=== PATIENT | male | born 1960 | race Caucasian/White ===

== ENCOUNTER 2016-12-14 09:22 | Inpatient (IN) ==
[2016-12-14] MEDS ORDERED: Albuterol 2.5 MG/3 ML NEBULIZER IH ONE (09:48)
[2016-12-14] MEDS ORDERED: ceFAZolin 2,000 MG in D5% in Water (Mini-Bag+) 100 ML IVPB ONE (09:50)
[2016-12-14] MEDS ORDERED: Ringers Solution, Lactated 1,000 ML IVC SCH ×2 (10:00→16:45)
--- NOTE | 2016-12-14 10:08 | Anesthesia Evaluation PreOp ---
Date of Encounter: 12/14/16 Time of Encounter: 10:08 - Past History Planned Operation: ACDF C3-6 Cardiac History: HTN, Hyperlipidemia Pulmonary History: Smoker (1 ppd x 40+), COPD OFFICE EXECUTIVE History: Seizures (as chil), Other (Cervical myelopathy, Anxiety/Depression , poss MRDD) Other Medical History: GERD Anesthesia History: No Prior Anesthetic Complications, Past Anesthesia (Appy, T& A,R. shoulder, Left ear,) Alcohol Use: none Drug use: none Medications and Allergies Meclizine [Antivert] 25 mg PO TID #30 tablet 08/18/15 [Rx] Cephalexin [Keflex] 500 mg PO QID #28 capsule 12/24/15 [Rx] Ibuprofen [Motrin] 600 mg PO Q8HR PRN #60 tab 03/07/16 [Rx] Allergies ciprofloxacin [From Cipro] Allergy (Verified 08/18/15 17:02) Itching - Meds/Allergy Pre-op Review Medications Reviewed: Yes Allergies Reviewed: Yes Beta Blockers on Current Med List: No Anesthesia Results - Labs Laboratory Tests 12/10/16 12/10/16 12/10/16 09:53 09:53 09:53 WBC 9.5 Hgb 16.5 Hct 50.3 H Plt Count 239 INR 1.0 Sodium 138 Potassium 4.8 H Chloride 104 Carbon Dioxide 22 BUN 14 Creatinine 1.08 - Imaging EKG: image reviewed (SR IVCD) Anesthesia Exam O2 Sat Height 1.7 m Height 1.7 m Weight 75.296 kg Weight 75.296 kg O2 Sat by Pulse Oximetry 95 Vital Signs Temp Pulse Resp BP Pulse Ox 98.6 F 80 18 154/86 95 12/14/16 09:58 12/14/16 09:58 12/14/16 09:58 12/14/16 09:58 12/14/16 09:58 Height: 5'7'' Weight: 166# NPO (# of Hours): > 8hrs Pain Scale: 0 Pain Scale Used: Numeric (1 - 10) - HEENT Pupil (Motor): Pupils equal, EOMI Mallampati: II Teeth: Edentulous Oral Opening: Greater than 3 - OFFICE EXECUTIVE LOC: Oriented OFFICE EXECUTIVE Motor: Normal RUE, Normal LUE, Normal RLE, Normal LLE, Normal Face OFFICE EXECUTIVE Sensory: Normal: RUE, LUE, RLE, LLE, Face - Cardiac Rhythm: Regular Murmur: None JVD: No Carotid Bruit: No - Pulmonary Breath Sounds: bilateral Clear Respiratory Effort: Symmetrical Anesthesia Assess/Plan ASA Score: 3 Modified Eva Scale for Level of Consciousness: Cooperative, oriented, and tranquil Anesthetic Plan: General Autologous Blood: Yes Monitoring Plan: Standard Monitors Recovery Plan: PACU
--- NOTE | 2016-12-14 10:19 | History & Physical Report ---
Date of Encounter: 12/14/16 Time of Encounter: 10:19 24 Hour HP Update - Instructions Instructions: If the History and Physical is less than 30 days old and was completed prior to A.M. admission and or procedure and has NOT been updated on calendar day of procedure please complete this update prior to performing procedure. - Update Patient reports changes in Medical Condition: No Changes in assessment/condition: No Changes in Medication: No Preop tests/diagnostics Reviewed: Yes Pre-Op MRSA Screen: Negative Surgery Remains Indicated: Yes Consent for Planned Operative Procedure(s) Verified: Yes - Pre-Operative Checklist Preoperative Checklist Indicated: No Prophylactic Antibiotic Ordered: Yes Home Medications Include Beta Milton: No Beta Milton Taken Today (Day of Surgery): No Beta Milton Taken Yesterday (Day Prior to Surgery): No Is VTE Prophylaxis Indicated?: Yes
[2016-12-14] MEDS ORDERED: *HR* Remifentanil 1 MG VIAL IVP ONE ×2 (11:29→13:14)
[2016-12-14] MEDS ORDERED: Lidocaine -MPF 2% 2 ML VIAL ONE (11:29)
[2016-12-14] MEDS ORDERED: Ondansetron 4 MG/2 ML VIAL ONE (11:29)
[2016-12-14] MEDS ORDERED: Dexamethasone 4 MG/ML VIAL ONE (11:29)
[2016-12-14] MEDS ORDERED: Lidocaine -MPF 4% 5 ML AMPUL ONE (11:29)
[2016-12-14] MEDS ORDERED: *HR* FentaNYL (PF) 100 MCG/2 ML VIAL ONE (11:29)
[2016-12-14] MEDS ORDERED: Propofol 500 MG/50 ML INFUS..BTL ONE ×3 (11:29→12:58)
[2016-12-14] MEDS ORDERED: *HR* Midazolam HCl 2 MG/2 ML VIAL ONE (11:29)
[2016-12-14] MEDS ORDERED: *HR* Succinylcholine 200 MG/10 ML VIAL IVP ONE (11:29)
[2016-12-14] MEDS ORDERED: *HR* Propofol 200 MG/20 ML VIAL IVP ONE ×2 (11:29→13:29)
[2016-12-14] MEDS ORDERED: *HR* Promethazine 25 MG/ML VIAL IVP PRN (11:46)
[2016-12-14] MEDS ORDERED: *HR* HYDROmorphone 2 MG/ML SYRINGE ONE (13:47)
--- NOTE | 2016-12-14 13:52 | Orthopedic Operative Note ---
Date of procedure: 12/14/16 Pre-op diagnosis: Cervical stenosis, cervical myelopathy Post-op diagnosis: same Operation/Findings: Anterior cervical decompression and fusion C3-C6::The patient was brought to the operating room and placed supine on the operating room table. Successful general endotracheal anesthesia intubation was performed. Neurophysiologic monitoring personnel placed leads on the upper and lower extremities as well as the cranium for EMG monitoring purposes. Appropriate baseline potentials were noted by the neurophysiologic monitoring staff. Rodriguez catheter was placed prior to positioning. Compression boots and stockings were placed for deep vein thrombosis prophylaxis. Padding was also placed all bony prominences including the ulnar nerve near the medial epicondyles of the elbows were appropriately padded. Mild traction was placed on the bilateral shoulders and taped into place. Preoperative antibiotics were administered. The area from the mandible bilaterally to the upper thoraces was prepped and draped in the usual sterile fashion. An oblique incision was made at the level of the cricoid cartilage which is approximately 3 cm in length and extended from the midline of the cervical spine 1 cm medial and parallel to the sternocleidomastoid muscle on the left. We then performed standard medial approach to the carotid sheath. Sponges were used to tease the fascial medial to the sternocleidomastoid muscle while carefully controlling and palpating the carotid artery. Using careful dissection we were able to get to the level of the anterior vertebral bodies and longus colli muscles. The spinal needle was placed at the appropriate C5-6 level, and intraoperative radiograph was obtained which was a cervical spine lateral radiograph. The needle and radiograph confirmed we were at the correct C5-6 operative level. We further exposed this level by using Bovie cautery under the medial edge of the longus colli muscles to allow them to be retracted approximately 2 mm laterally on each side. An 11 blade was used to perform anterior discectomy at the appropriate C5-6 level after an initial annulotomy of the anterior longitudinal ligament and annulus was performed. Further disc material was removed with pituitary Rongeurs. Subsequently, Synthes pins were placed at the C5 and C6 vertebral bodies respectively to provide distraction. We then used a Trimline cervical retractor which was placed in both medial and lateral as well as inferior superior direction to allow full visualization of the appropriate C5-6 disc and 5 and C6 vertebral bodies. The Leica microscope was brought to the field and the remainder of the procedure was performed under the guidance of this microscope. Using pituitary rongeurs and small curettes, various micro- instruments, a full discectomy was performed at the appropriate C5-6 level. The posterior longitudinal ligament was encountered and appeared partially calcified. A portion of this ligament was removed. After complete and thorough discectomy and removal of spondylitic material was performed the endplates of the T5 and C6 vertebral bodies were prepared with a bur until allow bleeding of cancellous bone. A 8mm trial graft was evaluated and appeared to fit quite well within the excised C5-6 disc space. A cortico- cancellous allograft of 8 mm was utilized, carefully tapped into place within the excised disc space with the aid of a bone tamp. It was seated approximately 2 mm from the anterior edge of the cortex of the adjacent vertebral bodies. We then turned our attention to the C4-5 level where a similar series of procedures was performed including discectomy, removal of spondylitic material, end plate preparation, and trial grafting. An 8mm trial fit well within the C4-5 disc space. A 8 mm allograft was then placed at C5-6. We then turned our attention to the C3-4 level where a similar series of procedures were performed. This included decompression, removal of spondylitic material, endplate preparation, and trial grafting. A 7 mm trial fit well within the decompressed C3-4 disc space. A 7 mm allograft was subsequently placed at C3-4 carefully. A 60 mm cervical plate was then placed on the anterior aspect of the C3, C4, C5, and C6 vertebral bodies. The plate was placed in the midline position after drilling eight 13 mm self tapping screws and inserting them. They were locked in place using standard Venture plate maneuvers. At this point a lateral radiograph of the cervical spine was obtained and showed satisfactory position of the graft and plate. The wound was copiously irrigated and bleeders encountered were cauterized using Bovie cautery. Platysma was closed with interrupted 2-0 Vicryl sutures. Running 3-0 Monocryl suture was used for skin closure. Sterile dressing was placed over the neck wound. A cervical collar was placed. The patient was transferred to a hospital bed and extubated. The patient was noted to be fully motor and sensory intact in the recovery room at the end of the procedure. The medications. All sponge instrument and needle counts were correct at the end of the procedure. Anesthesia: ERIKA Surgeon: Eran Wright Jr Estimated blood loss (cc): 60 Condition: stable Disposition: PACU
[2016-12-14] MEDS: *HR* HYDROmorphone (PF) 1 MG/ML SYRINGE IVP PRN ×2 (14:18→14:23)
[2016-12-14] MEDS: *HR* Labetalol 20 MG/4 ML SYRINGE IVP PRN ×2 (15:00→15:10)
--- NOTE | 2016-12-14 15:24 | Anesthesia Evaluation Post Op ---
Date of Encounter: 12/14/16 Time of Encounter: 15:24 - Vital Signs Vital Signs: Last Vital Signs Temp 98.5 F 12/14/16 14:02 Pulse 82 12/14/16 14:12 Resp 16 12/14/16 14:12 BP 153/90 12/14/16 14:12 Pulse Ox 98 12/14/16 14:12 - Lungs Lungs: Clear Ascult./Percussion - Airway Airway: Non-obstructed - Cardiovascular Regular Rate - Mental Status Mental Status: Alert & Oriented, Answers Appropriately - Pain Pain Scale: 4 - Nausea Vomiting Nausea Vomiting: Not Present - Hydration Hydration: NPO - Discharge PostOp Status: Transfer Patient to floor
[2016-12-14] MEDS ORDERED: Sennosides 8.6 MG TABLET PO PRN (15:48)
[2016-12-14] MEDS ORDERED: *HR* Morphine 2 MG/ML SYRINGE IVP PRN ×2 (15:48)
[2016-12-14] MEDS ORDERED: Naloxone 0.4 MG/ML INJ IVP PRN (15:48)
[2016-12-14] MEDS ORDERED: Ondansetron 4 MG/2 ML VIAL IVP PRN (15:48)
[2016-12-14] MEDS ORDERED: Ringers Solution, Lactated 1,000 ML ONE (15:56)
[2016-12-14] MEDS: *HR* OxyCODONE Immed Rel 5 MG TABLET PO PRN (19:48)
[2016-12-14] MEDS: ceFAZolin 2,000 MG in D5% in Water 100 ML IVPB SCH (19:57)
[2016-12-14] MEDS ORDERED: Sennosides 8.6 MG TABLET PO SCH (21:00)
[2016-12-14] MEDS ORDERED: Loratadine 10 MG TABLET PO SCH (21:00)
[2016-12-14] MEDS ORDERED: Aspirin Enteric Coated 81 MG Tablet PO SCH (21:00)
[2016-12-14] MEDS: Famotidine 20 MG TABLET PO SCH (22:04)
[2016-12-15] MEDS: ceFAZolin 2,000 MG in D5% in Water 100 ML IVPB SCH (00:07)
[2016-12-15] MEDS ORDERED: Venlafaxine XR (24 HR) 75 MG CAP.ER.24H PO SCH (09:00)
[2016-12-15] MEDS: *HR* OxyCODONE Immed Rel 5 MG TABLET PO PRN (09:22)
[2016-12-15] MEDS: Famotidine 20 MG TABLET PO SCH (09:22)
--- NOTE | 2016-12-15 09:47 | Discharge Summary ---
Date of Encounter: 12/15/16 Time of Encounter: 09:45 - Discharge Diagnosis (1) Cervical stenosis of spinal canal Priority: Primary Status: Chronic (2) Cervical myelopathy Priority: Secondary Status: Chronic - Discharge Medications Prescriptions: OxyCODONE Immed Rel [Roxicodone 5 MG] 5 mg PO Q6HR PRN #60 tablet PRN Reason: Severe Pain Home Medications: Amitriptyline HCl 300 mg PO HS 12/14/16 [History] Aspirin Enteric Coated [Aspirin EC] 81 mg PO HS 12/14/16 [History] Buspirone HCl [Buspar] 15 mg PO BID 12/14/16 [History] Citalopram [CeleXA] 20 mg PO HS 12/14/16 [History] Cyclobenzaprine [Flexeril] 10 mg PO HS 12/14/16 [History] HYDROcodone/Acet 10/325 mg [Friendly 10-325 mg] 1 tab PO Q6HR PRN 12/14/16 [History ] Loratadine [Allergy Relief] 10 mg PO HS 12/14/16 [History] Montelukast [Singulair] 10 mg PO QAM 12/14/16 [History] Polyethylene Glycol 3350 [MiraLAX Powder Bulk 17.9 Oz] 1 scoop PO DAILY PRN [History] Ranitidine HCl [Zantac] 150 mg PO BID 12/14/16 [History] Sennosides [Senna] 8.6 mg PO HS 12/14/16 [History] Simvastatin [Zocor] 40 mg PO QAM 12/14/16 [History] Venlafaxine XR (24 HR) [Effexor XR] 75 mg PO QAM 12/14/16 [History] Venlafaxine XR (24 HR) [Effexor Xr] 150 mg PO HS 12/14/16 [History] OxyCODONE Immed Rel [Roxicodone 5 MG] 5 mg PO Q6HR PRN #60 tablet 12/15/16 [Rx] Allergies/Adverse Reactions: Allergies ciprofloxacin [From Cipro] Allergy (Verified 12/14/16 10:26) Itching - Impressions ITS Impressions Cervical Spine X-Ray 12/14/16 11:39 IMPRESSION: Surgical instrument anterior to the C5-C6 disc space. Findings were discussed with Dr. Wright on 12/14/2016 at 11:43 am. D/ / Yunior Mansfield MD / Yunior Mansfield MD Interpreting Provider: Yunior Mansfield MD Cervical Spine X-Ray 12/14/16 11:41 IMPRESSION: Postoperative changes seen related to anterior cervical disc fusion and discectomy at C3 through C6 with disc interspace devices noted. No acute fracture. D/ / Oseas Ochoa MD / Oseas Ochoa MD Interpreting Provider: Oseas Ochoa MD Date of admission: 12/14/16 15:35 Primary care physician: Ruiz Decker Consults: 12/14/16 15:48 Consult to Occupational Therapy [CONS] Routine Comment: Evaluate, develop and implement POC Consult to Physical Therapy [CONS] Routine Comment: Evaluate, develop and implement POC Consult to Spine Navigator [CONS] [CONS] Routine - Patient Status Disposition: Home, Self-Care Condition: Good Functional capacity at discharge: independent ambulation Overall status at discharge: patient is progressing back to baseline - Discharge Instructions Follow Up With: Edyta Benites PAC [Physician Loom Repairer] - 12/31/16 11:15 am Ruiz Decker DO [Primary Care Provider] - - Diet and Activity Activity: as per physical therapy Diet: advance to your usual diet - Hospital Course Hospital course: Mr. Marx is a 56 year old male The patient had an uneventful postoperative course. Progressed from intravenous analgesic needs to oral analgesic needs only. Remained neurovascularly intact and mobilized satisfactorily. All intraoperative and/or postoperative radiographic studies were satisfactory. Patient is discharged with plan for rehabilitation and follow-up in 2 weeks post discharge on analgesic medication and patient's home medications. - Time Spent with Patient Total time spent providing and/or coordinating discharge services: - VTE Documentation of Mechanical Device: Intermittent pneumatic compression device
[2016-12-15 11:11] VITALS: BP 146/83
== END 2016-12-15 11:37 | disposition home or self-care (01) | DRG 321 ==
LOC: SAMDAY 09:22 → 3NENU 15:35
PROVIDERS: ADMIT Orthopaedic Surgery Orthopaedic Surgery of the Spine; ATTEND Orthopaedic Surgery Orthopaedic Surgery of the Spine

== ENCOUNTER 2017-10-19 15:07 | Observation (INO) ==
[2017-10-19 16:38] LABS: Basophils # 0.1 K/mcL (0.0-0.2); Basophils % 1.1 %; Eosinophils # 0.1 K/mcL (0.0-0.6); Eosinophils % 1.3 %; Hematocrit 50.6 % (37.5-50.1); Hemoglobin 16.4 g/dL (12.9-16.9); Immature Granulocytes % 0.3 % (0-4); Lymphocytes # 2.8 K/mcL (0.6-4.6); Lymphocytes % 25.4 %; Mean Corpuscular HGB Conc 32.4 g/dL (31.6-35.5); Mean Corpuscular Hemoglobin 30.2 pg (28.0-33.3); Mean Corpuscular Volume 93.2 fL (83.0-100.0); Mean Platelet Volume 9.9 fL (9.4-12.4); Monocytes # 0.9 K/mcL (0.0-1.3); Neutrophils # 6.9 K/mcL (1.6-8.9); Platelet Count 238 K/mcL (140-400); Red Blood Count 5.43 M/mcL (4.19-5.50); Red Cell Distribution Width 13.4 % (11.5-14.5); Segmented Neutrophils % 63.9 %
[2017-10-19 17:01] LABS: Calcium 9.6 mg/dL (8.6-10.3); Carbon Dioxide 23 mEq/L (23-29); Chloride 105 mEq/L (98-107); Potassium 4.3 mEq/L (3.5-5.1); Sodium 137 mEq/L (136-145)
[2017-10-19 17:07] LABS: BUN/Creatinine Ratio 14 (6-26); Blood Urea Nitrogen 14 mg/dL (6-20); Glucose 84 mg/dL (70-105); Osmolality,Calculated 284 (280-300); eGFR For African Americans > 60 (> 60); eGFR For Non-African Americans > 60 (> 60)
[2017-10-19] MEDS ORDERED: Aspirin 81 MG TAB.CHEW PO STA (17:38)
--- NOTE | 2017-10-19 17:41 | Emergency Department Note ---
Disposition Clinical Impression: Chest pain Qualifiers: Chest pain type: unspecified Qualified Code(s): R07.9 - Chest pain, unspecified Disposition: Admitted As Inpatient Condition: Fair Chest Pain HPI - General Chief Complaint: ED Chest Pain Stated Complaint: ALON,CP,Shoulder pain Time Seen by Provider: 10/19/17 16:33 Source: patient Limitations: no limitations Vital Signs Reviewed: Yes Nursing Notes Reviewed: Yes - History of Present Illness HPI Narrative: Patient presents for evaluation chest pain. Past medical history concerning for vascular disease including history of "mini strokes" as well as vascular stent placed in the lower leg. The patient also has a history of hypercholesterolemia, smoking. The patient developed symptoms at 1:00. Patient states that he had left-sided chest tightness with radiation to the shoulder. Associated diaphoresis weakness and fatigue. Patient laid down to rest but continued to have symptoms despite rest. Patient presents to the emergency department with his . Patient not in acute distress. Rating pain as a 7 out of 10. It was a 9 out of 10 at its worse. Patient will receive aspirin and nitroglycerin. EKG does not show ST elevations. Patient will be admitted for further testing and observation. Severity scale (1-10): 6 - Related Data Home Medications Medication Instructions Recorded Confirmed Amitriptyline HCl 250 mg PO HS 12/14/16 10/19/17 Aspirin Enteric Coated [Aspirin EC] 81 mg PO QAM 12/14/16 10/19/17 Buspirone HCl [Buspar] 15 mg PO BID 12/14/16 10/19/17 Citalopram [CeleXA] 20 mg PO HS 12/14/16 10/19/17 Cyclobenzaprine [Flexeril] 10 mg PO HS 12/14/16 10/19/17 HYDROcodone/Acet 10/325 mg [[place] 1 tab PO Q6HR PRN 12/14/16 10/19/17 10-325 mg] Loratadine [Allergy Relief] 10 mg PO HS 12/14/16 10/19/17 Montelukast [Singulair] 10 mg PO QAM 12/14/16 10/19/17 Ranitidine HCl [Zantac] 150 mg PO BID 12/14/16 10/19/17 Sennosides [Senna] 17.2 mg PO HS PRN 12/14/16 10/19/17 Simvastatin [Zocor] 40 mg PO QAM 12/14/16 10/19/17 Venlafaxine XR (24 HR) [Effexor XR] 75 mg PO QAM 12/14/16 10/19/17 Venlafaxine XR (24 HR) [Effexor Xr] 150 mg PO HS 12/14/16 10/19/17 Allergies Allergy/AdvReac Type Severity Reaction Status Date / Time ciprofloxacin [From Cipro] Allergy Itching Verified 10/19/17 15:11 Review of Systems: CONSTITUTIONAL: Diaphoresis and weakness No weight loss, fever, chills HEENT: Eyes: No visual changes. Ears, Nose, Throat: No hearing loss, difficulty talking or unable to swallow. SKIN: No rash or itching. CARDIOVASCULAR: Chest pain RESPIRATORY: Shortness of breath GASTROINTESTINAL: No anorexia, nausea, vomiting or diarrhea. No abdominal pain or blood. GENITOURINARY: No burning on urination or hematuria. NEUROLOGICAL: No headache, dizziness, syncope, paralysis, ataxia, numbness or tingling in the extremities. No change in bowel or bladder control. MUSCULOSKELETAL: No muscle pain, back pain, joint pain or stiffness. Chest Pain PMH - Past Medical History Medical history: Reports: COPD, GERD, hyperlipidemia, hypertension, TIA Surgical history: Reports: angioplasty/stent, appendectomy, cholecystectomy Psychiatric history: Reports: anxiety, depression - Social History Smoking Status: Current every day smoker Alcohol use: Reports: none Drug use: Reports: none Physical Exam General: Well appearing, nontoxic, no acute distress Head: Normocephalic Atraumatic Eyes: PERRL, EOMI ENT: Airway patent, no stridor Neck: supple, no meningismus Chest: Lungs clear to auscultation bilateral Cardiac: Regular rate and rhythm, no murmurs, rubs or gallops Abdomen: soft, nontender, nondistended; no guarding, rebound, or tenderness to percussion Musculoskeletal: Calves symmetric, nontender, no palpable cord Skin: No rash, normal skin tone Neuro: Alert and Oriented to person, place, and time; No focal deficit, CN 2-12 symmetric and intact - General Limitations: no limitations General appearance: alert, in no apparent distress Course - Reevaluation(s) Reevaluation #1: Patient improved with nitroglycerin. - Consultations Consultation #1: Discussed with hospitalist. Patient accepted for admission. Vital Signs Temperature 98.0 F 10/19/17 15:08 Pulse Rate 97 10/19/17 15:08 Respiratory Rate 18 10/19/17 15:08 Blood Pressure 156/102 10/19/17 15:08 O2 Sat by Pulse Oximetry 95 10/19/17 15:08 Temperature 97.7 F 10/19/17 21:45 Pulse Rate 84 10/19/17 21:45 Respiratory Rate 16 10/19/17 21:45 Blood Pressure 127/82 10/19/17 21:45 O2 Sat by Pulse Oximetry 95 10/19/17 21:45 Oxygen Delivery Oxygen Delivery Room Air Chest Pain - Medical Records Medical records reviewed: Yes I reviewed the patient's medical records. - Lab Data Lab results reviewed: Yes I reviewed the patient's lab results. Result diagrams: 10/19/17 16:21 10/19/17 16:21 Lab Results 10/19/17 10/19/17 10/19/17 Range/Units 16:21 16:21 16:21 WBC 10.8 (4.3-11.1) K/mcL RBC 5.43 (4.19-5.50) M/mcL Hgb 16.4 (12.9-16.9) g/dL Hct 50.6 H (37.5-50.1) % MCV 93.2 (83.0-100.0) fL MCH 30.2 (28.0-33.3) pg MCHC 32.4 (31.6-35.5) g/dL RDW 13.4 (11.5-14.5) % Plt Count 238 (140-400) K/mcL MPV 9.9 (9.4-12.4) fL Immature Gran % 0.3 (0-4) % Seg Neutrophils % 63.9 % Lymphocytes % 25.4 % Monocytes % 8.0 % Eosinophils % 1.3 % Basophils % 1.1 % Neutrophils # 6.9 (1.6-8.9) K/mcL Lymphocytes # 2.8 (0.6-4.6) K/mcL Monocytes # 0.9 (0.0-1.3) K/mcL Eosinophils # 0.1 (0.0-0.6) K/mcL Basophils # 0.1 (0.0-0.2) K/mcL Sodium 137 (136-145) mEq/L Potassium 4.3 (3.5-5.1) mEq/L Chloride 105 (98-107) mEq/L Carbon Dioxide 23 (23-29) mEq/L BUN 14 (6-20) mg/dL Creatinine 1.03 (0.70-1.30) mg/dL Est GFR ( Amer) > 60 (> 60) Est GFR (Non-Af Amer) > 60 (> 60) BUN/Creatinine Ratio 14 (6-26) Glucose 84 (70-105) mg/dL Calculated Osmolality 284 (280-300) Calcium 9.6 (8.6-10.3) mg/dL Troponin I < 0.03 (< 0.04) ng/mL - Radiology Data Radiology results reviewed: Yes I reviewed the patient's radiology results. - EKG Data EKG attestation: Yes I reviewed and interpreted this EKG. EKG results narrative: EKG shows sinus rhythm with a ventricular rate of 91. OH interval 195. QRS 79. QTC 372. Patient has no significant ST elevations or depressions. EKG compared with previous of 12/10/16. Heart Score - Score History: Highly Suspicious EKG: Non Specific repolarisation Disturbance Age: 45-65 Risk Factors: Equal/Greater than 3 risk factor or history of atherosclerotic disease Troponin: Less than normal limit HEART Score Total: 6
[2017-10-19] MEDS ORDERED: Nitroglycerin 1 INCH/GM PACKET TP ONE (17:50)
--- NOTE | 2017-10-19 17:50 | Emergency Department Note ---
START Narrative - START START: I examined this patient and my medical decision-making was reviewed with the Resident Physician. I agree with the documented findings, disposition and treatment plan as described except to the extent set forth below. 57 yo M here for chest pain. needs ACS workup intermittent chest pain that radiates up to left shoulder. hx of vascular disease and stent in leg. risk factors ekg nondiagnostic vss neg labs neg cxr
[2017-10-19] MEDS: Nitroglycerin 0.4 MG TAB.SUBL SL STA ×2 (17:51→18:01)
[2017-10-19] MEDS ORDERED: Ondansetron 4 MG/2 ML VIAL IVP ONE (18:46)
[2017-10-19] MEDS: *HR* Morphine 2 MG/ML SYRINGE IVP ONE ×2 (19:11→19:15)
[2017-10-19] MEDS ORDERED: 0.9 % Sodium Chloride 1,000 ML ONE (19:16)
[2017-10-19] MEDS ORDERED: 0.9 % Sodium Chloride 1,000 ML IVC ONE (19:17)
[2017-10-19] MEDS ORDERED: Acetaminophen 325 MG TABLET PO PRN (20:24)
[2017-10-19] MEDS ORDERED: Nitroglycerin 0.4 MG TAB.SUBL SL PRN (20:24)
[2017-10-19] MEDS ORDERED: *HR* HYDROmorphone (PF) 1 MG/ML SYRINGE IVP PRN ×2 (20:25→20:26)
[2017-10-19] MEDS ORDERED: Naloxone 0.4 MG/ML INJ IVP PRN (20:26)
[2017-10-19] MEDS ORDERED: Ondansetron 4 MG/2 ML VIAL IVP PRN (20:26)
[2017-10-19] MEDS ORDERED: 0.9 % Sodium Chloride 1,000 ML IVC SCH (20:30)
--- NOTE | 2017-10-19 20:37 | Internal Med History&Physical ---
Date of Encounter: 10/19/17 Time of Encounter: 20:35 Assessment and Plan (1) Chest pain Current visit: Yes Status: Acute Consider possible unstable angina next Due to the patient's symptoms we will order a CT angiogram the chest, consider heparin drip if CT Angio of the chest does not demonstrate any dissection May continue aspirin, Lipitor, nitroglycerin as needed, Dilaudid as needed Cardiology consult, nothing by mouth after midnight Omeprazole for GI prophylaxis and Lovenox for DVT prophylaxis (hold until the patient has the CT angio ot the chest reported), patient will be admitted for observation, full code. Time spent on this admission 40 minutes Qualifiers: Chest pain type: unspecified Qualified Code(s): R07.9 - Chest pain, unspecified (2) Tobacco abuse Current visit: Yes Status: Acute Smoking cessation counseling given for 5 min , nicotine patch (3) Peripheral vascular disease Current visit: Yes Status: Acute Currently only on aspirin (4) COPD (chronic obstructive pulmonary disease) Current visit: Yes Status: Acute No exacerbation Qualifiers: Emphysema type: unspecified Qualified Code(s): J43.9 - Emphysema, unspecified (5) GERD (gastroesophageal reflux disease) Current visit: Yes Status: Acute Qualifiers: Esophagitis presence: without esophagitis Qualified Code(s): K21.9 - Gastro -esophageal reflux disease without esophagitis Internal Medicine - H&P: HPI Chief complaint: Chest pain Admitted From: Emergency Dept History of present illness: Mr. Marx is a 57 year old male with a past medical history of TIAs, left lower extremity stent and peripheral vascular disease, tobacco use, hyperlipidemia, came to the emergency room complaining of severe left chest tightness now midsternal 9 out of 10 in intensity that improved slightly with the nitroglycerin accompanied by diaphoresis and fatigue. The pain is still present patient feels slightly short of breath. Received aspirin and nitroglycerin which dropped his blood pressure momentarily to the 90s. Chest x- ray is unremarkable, EKG shows no acute changes, blood pressure was 156/102. Is a still feeling very uncomfortable, complains of some nausea with her some radiation to the left shoulder and back. Troponin is negative Past Med Surg Social Fam HX - Past Medical History Medical history: COPD (No oxygen dependent), GERD, hyperlipidemia, hypertension , TIA, other (Peripheral vascular disease with left lower extremity stent, tobacco use, asthma, GERD) Psychiatric history: anxiety, depression - Past Surgical History Surgical History: angioplasty/stent, appendectomy, cholecystectomy, vascular surgery (Left iliac stent, right shoulder arthroplasty) - Social History Smoking Status: Current every day smoker Packs per day: Half a pack per day Smokeless Tobacco Status: No Alcohol use: none Drug use: none - Additional Family History Additional family history: Father with COPD Internal Medicine - H&P: Meds Amitriptyline HCl 250 mg PO HS 12/14/16 [History] Aspirin Enteric Coated [Aspirin EC] 81 mg PO QAM 12/14/16 [History] Buspirone HCl [Buspar] 15 mg PO BID 12/14/16 [History] Citalopram [CeleXA] 20 mg PO HS 12/14/16 [History] Cyclobenzaprine [Flexeril] 10 mg PO HS 12/14/16 [History] HYDROcodone/Acet 10/325 mg [[place] 10-325 mg] 1 tab PO Q6HR PRN 12/14/16 [History ] Loratadine [Allergy Relief] 10 mg PO HS 12/14/16 [History] Montelukast [Singulair] 10 mg PO QAM 12/14/16 [History] Ranitidine HCl [Zantac] 150 mg PO BID 12/14/16 [History] Sennosides [Senna] 17.2 mg PO HS PRN 12/14/16 [History] Simvastatin [Zocor] 40 mg PO QAM 12/14/16 [History] Venlafaxine XR (24 HR) [Effexor XR] 75 mg PO QAM 12/14/16 [History] Venlafaxine XR (24 HR) [Effexor Xr] 150 mg PO HS 12/14/16 [History] 3 Allergy/AdvReac Type Severity Reaction Status Date / Time ciprofloxacin [From Cipro] Allergy Itching Verified 10/19/17 15:11 All Systems PM: A 10-system review of systems was performed and is negative for pertinent findings except as documented above in the HPI. Review of systems: Chest pain, other systems out of the 10 reviewed were negative - Constitutional Vitals: Temp Pulse Resp BP Pulse Ox 98.0 F 97 18 113/70 95 10/19/17 15:08 10/19/17 18:06 10/19/17 17:59 10/19/17 18:06 10/19/17 18:06 General appearance: Present: A&O X 3 - Head Head exam: Present: atraumatic, normocephalic - Eye Eye exam: Present: PERRL, conjuntiva pink, sclera anicteric Pupils: Present: PERRL - Neck Neck exam general surgery: Present: supple, trachea midline. Absent: lymphadenopathy - Respiratory Respiratory exam: Present: CTAB. Absent: accessory muscle use, rales, rhonchi, wheezes - Cardiovascular Cardiovascular exam: Present: RRR, +S1, +S2. Absent: diastolic murmur, gallop, rubs, systolic murmur - GI/Abdominal GI/Abdominal exam: Present: normal bowel sounds, soft, no peritoneal signs. Absent: distended, tenderness - Extremities Exam Extremities exam: Present: warm, radial pulses palpable and symmetrical. Absent : calf tenderness, cyanotic, pedal edema - Neurological Exam Neurological exam: Present: CN II-XII intact, oriented X3, no focal deficits. Absent: pronater drift, facial droop, speech deficit - Skin Skin exam: Present: dry, intact Internal Med - H&P Results - Labs CBC & Chem 7: 10/19/17 16:21 10/19/17 16:21 Labs: Short CBC 10/19/17 Range/Units 16:21 WBC 10.8 (4.3-11.1) K/mcL Hgb 16.4 (12.9-16.9) g/dL Hct 50.6 H (37.5-50.1) % Plt Count 238 (140-400) K/mcL Neutrophils # 6.9 (1.6-8.9) K/mcL BMP 10/19/17 16:21 Sodium 137 Potassium 4.3 Chloride 105 Carbon Dioxide 23 BUN 14 Creatinine 1.03 Glucose 84 Calcium 9.6 Cardiac Enzymes 10/19/17 Range/Units 16:21 Troponin I < 0.03 (< 0.04) ng/mL - Impressions ITS Impressions Chest X-Ray 10/19/17 15:13 IMPRESSION: No acute abnormality. D/ / Denton Bautista MD / Denton Bautista MD Interpreting Provider: Denton Bautista MD
[2017-10-19] MEDS ORDERED: Venlafaxine XR (24 HR) 150 MG CAP.ER.24H PO SCH (21:00)
[2017-10-19] MEDS: *HR* Enoxaparin 40 MG/0.4 ML SYRINGE SQ SCH (23:10)
[2017-10-19] MEDS: Nicotine 21 MG PATCH.TD24 TD SCH (23:12)
[2017-10-20 05:40] LABS: Hematocrit 45.8 % (37.5-50.1); Mean Corpuscular HGB Conc 32.8 g/dL (31.6-35.5); Mean Corpuscular Hemoglobin 30.4 pg (28.0-33.3); Mean Corpuscular Volume 92.9 fL (83.0-100.0); Mean Platelet Volume 10.3 fL (9.4-12.4); Platelet Count 217 K/mcL (140-400); Red Blood Count 4.93 M/mcL (4.19-5.50); Red Cell Distribution Width 13.6 % (11.5-14.5)
[2017-10-20] MEDS: *HR* Enoxaparin 40 MG/0.4 ML SYRINGE SQ SCH (05:53)
[2017-10-20] MEDS ORDERED: Aspirin Enteric Coated 325 MG Tablet PO SCH (09:00)
[2017-10-20] MEDS ORDERED: Venlafaxine XR (24 HR) 75 MG CAP.ER.24H PO SCH (09:00)
[2017-10-20] MEDS ORDERED: Aspirin Enteric Coated 81 MG Tablet PO SCH (09:00)
[2017-10-20] MEDS: Nicotine 21 MG PATCH.TD24 TD SCH (09:20)
[2017-10-20 10:14] LABS: BUN/Creatinine Ratio 13 (6-26); Blood Urea Nitrogen 12 mg/dL (6-20); Calcium 8.7 mg/dL (8.6-10.3); Carbon Dioxide 23 mEq/L (23-29); Chloride 109 mEq/L (98-107); Chol/HDL Ratio 4.7 (0-4.9); Cholesterol 189 mg/dL (< 200); Glucose 95 mg/dL (70-105); HDL Cholesterol 40 mg/dL (40-59); LDL Cholesterol,Calculated 107 mg/dL (0-99); Osmolality,Calculated 284 (280-300); Potassium 4.4 mEq/L (3.5-5.1); Sodium 137 mEq/L (136-145); Triglycerides 210 mg/dL (< 150); eGFR For African Americans > 60 (> 60); eGFR For Non-African Americans > 60 (> 60)
[2017-10-20] MEDS ORDERED: Regadenoson 0.4 MG/5 ML SYRINGE IVP ONE (10:23)
[2017-10-20 12:29] VITALS: BP 137/87
--- NOTE | 2017-10-20 14:01 | Cardiology Consult Note ---
<Tony Jacques R - Last Filed: 10/20/17 13:58> Date of Encounter: 10/20/17 Time of Encounter: 13:58 Assessment and Plan (1) Abnormal stress test Status: Acute Stress test shows a small sized, mild intensity primarily fixed perfusion defect involving the apex associated with mild worsening of perfusion on stress when compared to rest. Findings likely represent artifact, but mild reversible ischemia could not be excluded. Low risk stress test findings. Echo EF 55%, mild MR. Martinez presented with chest pain that started at rest, improved with nitro in ED, resolved completely after 2 hours. Denies recurrence. Troponins negative x 3. No new ischemic EKG changes from his baseline. Risk factors for CAD include known PVD, HTN, HLD, tobacco abuse. Discussed medical management with close outpt follow-up vs. [facility]. Pt prefers medical management with close outpt follow-up. R/B/A discussed. Recommend ASA, Statin, BB, add Imdur 30mg daily. Anticipate sign off once seen and evaluated by Dr. Mckinley. Will coordinate outpt follow-up in 1 week. (2) Chest pain Status: Acute As above. Now resolved. BP was 156/102 on presentation, may have been contributing factor. Qualifiers: Chest pain type: unspecified Qualified Code(s): R07.9 - Chest pain, unspecified (3) Tobacco abuse Status: Acute Smoking cessation counseling given. Discussion w patient/family: The assessment and plan as outlined above was discussed with the patient and/or family members who expressed understanding and agreement. All questions were answered. Thank you for involving us in the care of your patient. Please call with any questions. I will discuss all the above with Dr. Mckinley and make changes as necessary. History of Present Illness Consult date: 10/20/17 Requesting physician: Elissa Peña Consult reason: Abnormal stress Chief complaint: Chest pain History of present illness: Mr. Marx is a 57 year old male with PMH of TIAs, PVD and left lower extremity stent, tobacco use, hyperlipidemia that presented to the ED complaining of chest pain that started yesterday at rest, described as aching across his chest, improved slightly with the nitroglycerin. He thinks it may have been in his left shoulder as well. Pt states pain resolved after 2 hours without recurrence. He denies dyspnea, nausea or diaphoresis. BP was 156/102 on presentation. Troponins negative x 3. EKG unchanged from his baseline. Echo and stress test were ordered. Echo EF 55%, mild MR. Stress test shows a small sized , mild intensity primarily fixed perfusion defect involving the apex associated with mild worsening of perfusion on stress when compared to rest. Findings likely represent artifact, but mild reversible ischemia could not be excluded. Cardiology consulted for further recommendations. Past Med Surg Social Fam HX - Past Medical History Medical history: COPD, GERD, hyperlipidemia, hypertension, TIA Psychiatric history: anxiety, depression - Past Surgical History Surgical History: angioplasty/stent, appendectomy, cholecystectomy - Social History Smoking Status: Current every day smoker Packs per day: Half a pack per day Smokeless Tobacco Status: No Alcohol use: none Drug use: none - Family History Mother Hx Family Endocrine Disorder: Yes (dm) Medications and Allergies Amitriptyline HCl 250 mg PO HS 12/14/16 [History] Aspirin Enteric Coated [Aspirin EC] 81 mg PO QAM 12/14/16 [History] Buspirone HCl [Buspar] 15 mg PO BID 12/14/16 [History] Citalopram [CeleXA] 20 mg PO HS 12/14/16 [History] Cyclobenzaprine [Flexeril] 10 mg PO HS 12/14/16 [History] HYDROcodone/Acet 10/325 mg [[place] 10-325 mg] 1 tab PO Q6HR PRN 12/14/16 [History ] Loratadine [Allergy Relief] 10 mg PO HS 12/14/16 [History] Montelukast [Singulair] 10 mg PO QAM 12/14/16 [History] Ranitidine HCl [Zantac] 150 mg PO BID 12/14/16 [History] Sennosides [Senna] 17.2 mg PO HS PRN 12/14/16 [History] Simvastatin [Zocor] 40 mg PO QAM 12/14/16 [History] Venlafaxine XR (24 HR) [Effexor XR] 75 mg PO QAM 12/14/16 [History] Venlafaxine XR (24 HR) [Effexor Xr] 150 mg PO HS 12/14/16 [History] Isosorbide MONOnitrate (24 HR) [Imdur] 30 mg PO DAILY #30 tab.er.24h 10/20/17 [ Rx] Metoprolol [Lopressor] 12.5 mg PO BID #30 tablet 10/20/17 [Rx] 3 Allergy/AdvReac Type Severity Reaction Status Date / Time ciprofloxacin [From Cipro] Allergy Itching Verified 10/19/17 15:11 All Systems Review: A 10-system review of systems was performed and is negative for pertinent findings except as documented above in the HPI. - Cardiovascular Cardiovascular: as per HPI, chest pain at rest Physical Examination Vital Signs, Last 4 Hours Temp Pulse Resp BP Pulse Ox 10/20/17 12:28 97.2 F L 77 18 137/87 93 Vital Signs Temp Pulse Resp BP Pulse Ox 10/20/17 12:28 97.2 F L 77 18 137/87 93 10/20/17 06:52 97.3 F L 68 18 125/80 91 10/19/17 21:45 97.7 F 84 16 127/82 95 10/19/17 21:32 16 136/81 10/19/17 20:26 77 16 114/73 97 10/19/17 18:06 97 113/70 95 10/19/17 17:59 88 18 140/95 96 10/19/17 17:00 90 18 130/93 96 10/19/17 15:08 98.0 F 97 18 156/102 95 Intake and Output 10/19/17 10/20/17 10/20/17 23:59 07:59 15:59 Intake Total 1000 / 1000 Output Total 1000 / 1000 Balance 1000 / 1000 -1000 / -1000 Intake: IV Fluids 1000 / 1000 0.9 % Sodium Chloride 1,000 ML 1000 / 1000 @ 3750 mls/hr IVC .Q16M ONE Rx# :[id number] Output: Urine 1000 / 1000 General: Conversant, No Apparent Distress HEENT: Atraumatic, Normocephaly, Mucus Membranes Moist Neck: No JVD, Normal carotid pulses Cardiac: Reg Rate and Rhythm, Normal S1 and S2, No Murmur Lungs: Normal Breath Sounds, No Wheeze, Rales, Rhonchi Neuro: Alert and responsive, No focal deficits noted Abdomen: Soft, Non-Tender Skin: No rashes noted on visualized skin Musculoskeletal: No Chest Wall Tenderness Extremities: No Clubbing, No Cyanosis, No Edema, Normal Pulses Results 10/20/17 03:27 10/20/17 09:31 Lab Results 10/19/17 10/20/17 10/20/17 20:40 03:27 03:27 WBC 7.7 Hgb 15.0 Hct 45.8 Plt Count 217 Sodium Potassium Chloride Carbon Dioxide BUN Creatinine Glucose Calcium Troponin I < 0.03 < 0.03 10/20/17 10/20/17 09:31 09:31 WBC Hgb Hct Plt Count Sodium 137 Potassium 4.4 Chloride 109 H Carbon Dioxide 23 BUN 12 Creatinine 0.94 Glucose 95 Calcium 8.7 Troponin I < 0.03 Short CBC 10/20/17 10/19/17 Range/Units 03:27 16:21 WBC 7.7 10.8 (4.3-11.1) K/mcL Hgb 15.0 16.4 (12.9-16.9) g/dL Hct 45.8 50.6 H (37.5-50.1) % Plt Count 217 238 (140-400) K/mcL Neutrophils # 6.9 (1.6-8.9) K/mcL BMP 10/20/17 10/19/17 Range/Units 09:31 16:21 Sodium 137 137 (136-145) mEq/L Potassium 4.4 4.3 (3.5-5.1) mEq/L Chloride 109 H 105 (98-107) mEq/L Carbon Dioxide 23 23 (23-29) mEq/L BUN 12 14 (6-20) mg/dL Creatinine 0.94 1.03 (0.70-1.30) mg/dL Glucose 95 84 (70-105) mg/dL Calcium 8.7 9.6 (8.6-10.3) mg/dL Cardiac Enzymes 10/20/17 10/20/17 10/19/17 Range/Units 09:31 03:27 20:40 Troponin I < 0.03 < 0.03 < 0.03 (< 0.04) ng/mL 10/19/17 Range/Units 16:21 Troponin I < 0.03 (< 0.04) ng/mL Impressions Chest X-Ray 10/19/17 15:13 IMPRESSION: No acute abnormality. D/ / Denton Bautista MD / Denton Bautista MD Interpreting Provider: Denton Bautista MD Chest CTA 10/19/17 20:34 IMPRESSION: No acute abnormality detected. Specifically, no evidence of thoracic aortic dissection. D/ / Tim Hood MD / Tim Hood MD Interpreting Provider: Tim Hood MD Echocardiogram 10/20/17 09:00 Impressions: LVEF 55%. Normal right ventricular structure and function. Mild mitral regurgitation. No pulmonary hypertension. Left Ventricular Wall Motion: Rest Echo Findings All wall segments showed normal motion. Findings: Study Quality * Technically adequate exam. ECG Findings * Normal sinus rhythm. Left Ventricle * LVEF 55%. * Normal LV chamber size, wall thickness and function. * Indeterminate diastolic function. E/a not well evaluated. Reduced TD velocities. Right Ventricle * Normal right ventricular structure and function. Left Atrium * Normal left atrial size. Right Atrium * Normal right atrial size. Aortic Valve * No aortic regurgitation. * Aortic valve not well visualized. * No aortic stenosis. Mitral Valve * Mild mitral regurgitation. * Normal mitral valve structure. * No mitral stenosis. Tricuspid Valve * Tricuspid valve not well visualized. * No tricuspid regurgitation. Pulmonic Valve * Pulmonic valve is not well visualized. * No pulmonic stenosis. * No pulmonic regurgitation. Pulmonary Artery * Pulmonary artery not well visualized. Aorta * Normally sized aortic root. * Ascending aorta is not well visualized. Pericardium * There is no pericardial effusion present. Active Medications Acetaminophen (Tylenol) 650 mg PO Q4HR PRN PRN Reason: fever and mild pain Stop: 04/20/18 20:25 Last Admin: 10/20/17 00:54 Dose: 650 mg Aspirin (Aspirin Ec) 325 mg PO DAILY DANIELLE Stop: 04/21/18 09:01 Last Admin: 10/20/17 08:30 Dose: 325 mg Atorvastatin Calcium (Lipitor) 80 mg PO HS [facility] Stop: 04/20/18 21:01 Last Admin: 10/19/17 22:58 Dose: 80 mg Buspirone HCl (Buspar) 15 mg PO BID DANIELLE Stop: 04/20/18 21:01 Last Admin: 10/20/17 08:30 Dose: 15 mg Citalopram Hydrobromide (Celexa) 20 mg PO HS [facility] Stop: 04/20/18 21:01 Last Admin: 10/19/17 22:58 Dose: 20 mg Enoxaparin Sodium (Lovenox) 40 mg SQ 0600 [facility] PRN Reason: Protocol Stop: 04/20/18 20:26 Last Admin: 10/20/17 05:53 Dose: 40 mg Hydromorphone HCl (Dilaudid) 1 mg IVP Q2H PRN PRN Reason: severe pain Stop: 04/20/18 20:31 Last Admin: 10/19/17 22:58 Dose: 1 mg Hydromorphone HCl (Dilaudid) 0.5 mg IVP Q2H PRN PRN Reason: moderate pain Stop: 04/20/18 20:27 Sodium Chloride (0.9 % Sodium Chloride) 1,000 mls @ 75 mls/hr IVC .[id number] [facility] Stop: 10/20/17 23:09 Last Admin: 10/19/17 23:44 Dose: 75 mls/hr Metoprolol Tartrate (Lopressor) 12.5 mg PO BID [facility] Stop: 04/20/18 21:01 Last Admin: 10/20/17 09:20 Dose: Not Given Montelukast Sodium (Singulair) 10 mg PO QPM [facility] Stop: 04/21/18 18:01 Naloxone HCl (Narcan) 0.4 mg IVP Q2MIN PRN PRN Reason: Opioid Reversal Stop: 04/20/18 20:27 Nicotine (Nicoderm) 21 mg TD DAILY [facility] PRN Reason: Protocol Stop: 04/20/18 20:31 Last Admin: 10/20/17 09:20 Dose: Not Given Nitroglycerin (Nitroglycerin) 0.4 mg SL Q5MIN PRN PRN Reason: Chest Pain Stop: 04/20/18 20:25 Omeprazole (Prilosec) 40 mg PO DAILY@0630 [facility] PRN Reason: Protocol Stop: 04/21/18 06:31 Last Admin: 10/20/17 05:53 Dose: 40 mg Ondansetron HCl (Zofran) 4 mg IVP Q8HR PRN PRN Reason: Nausea And Vomiting Stop: 04/20/18 20:27 Venlafaxine HCl (Effexor Xr) 75 mg PO QAM [facility]ELLE Stop: 04/21/18 09:01 Last Admin: 10/20/17 08:30 Dose: 75 mg Venlafaxine HCl (Effexor Xr) 150 mg PO HS [facility]ANIELLE PRN Reason: Protocol Stop: 04/20/18 21:01 Last Admin: 10/19/17 22:58 Dose: 150 mg - Imaging and Cardiology Stress Test: report reviewed Echo: report reviewed - EKG Interpretation EKG results cardiology: personally reviewed Consult Discharge Plan - Plan Referrals: Justen Mckinley DO [Partnered Physician] - (Please call to schedule hospital follow up appointment) Ruiz Decker DO [Primary Care Provider] - (Please call to schedule hospital follow up appointment) Prescriptions: Isosorbide MONOnitrate (24 HR) [Imdur] 30 mg PO DAILY #30 tab.er.24h Metoprolol [Lopressor] 12.5 mg PO BID #30 tablet <Justen Mckinley - Last Filed: 10/21/17 18:58> Date of Encounter: 10/20/17 Time of Encounter: 17:05 - Attending Attestation I have personally performed a face to face evaluation on this patient. I have reviewed and agree with the care plan. History and Exam by me shows CC: PT presented to ER with complaint of chest pain, described as a dull ache, starting at rest, waxing and waning over last 12 hours, associated with shortness of breath when pain is severe, improving but not resolving with SL ntg. Pt reports chest pain spontaneously resolved over two hours, is now pain free. Pt was found to have elevated blood pressure on admission which has improved. He notes shortness of breath has resolved. He is comfortable at rest , notes chest pain and shortness of breath has resolved. PE: Reviewed above, agree IMP: 1. Chest pain, atypical has resolved, stress test shows mild apical defect, cannot rule out ischemia. Discussed LHC to determine if has ischemic substrate , had long conversation about risks and benefits, pt declines invasive strategy , will continue to monitor on medical tx. 2. Tobacco abuse: pt continues to smoke a pack a day against medical advice, encouraged smoking cessation Agree with discharge today, will follow as outpatient, reviewed and instructed pt in use of sl ntg. Assessment and Plan Discussion w patient/family: The assessment and plan as outlined above was discussed with the patient and/or family members who expressed understanding and agreement. All questions were answered. Thank you for involving us in the care of your patient. Please call with any questions. History of Present Illness History of present illness: Mr. Marx is a 57 year old male All Systems Review: A 10-system review of systems was performed and is negative for pertinent findings except as documented above in the HPI. Results 10/20/17 03:27 10/20/17 09:31
[2017-10-20] MEDS ORDERED: Isosorbide MONOnitrate (24 HR) 30 MG TAB.ER.24H PO SCH (14:30)
--- NOTE | 2017-10-20 16:22 | Electrocardiograph Report ---
[address] [place] [address] Test Date: 2017-10-19 Pat Name: Ruiz Marx Department: 102 Room: 3B45 Gender: M Operating Room Coordinator: Sheri : 1960 Requested By: Ruiz Devries Order Number: [id number] Reading MD: Boubacar Delgado MD Measurements Intervals [place] Rate: 91 P: 48 OR: 195 QRS: -31 QRSD: 79 T: 45 QT: 323 QTc: 372 Interpretive Statements SINUS RHYTHM MARKED LEFT AXIS DEVIATION INFERIOR MYOCARDIAL INFARCTION, PROBABLY OLD BASELINE ARTIFACT Electronically Signed On 10-20-2017 16:20:35 EST by Boubacar Delgado MD
--- NOTE | 2017-10-20 16:26 | Discharge Summary ---
Date of Encounter: 10/20/17 Time of Encounter: 16:24 - Discharge Diagnosis (1) Chest pain Priority: Primary Status: Acute Comments: Mr. Marx is a 57 year old male with a past medical history of TIAs, left lower extremity stent, peripheral vascular disease, tobacco use, and hyperlipidemia, who came to the emergency room complaining of severe left chest midsternal tightness 9 out of 10 in intensity that improved slightly with nitroglycerin. He reported this pain was accompanied by diaphoresis and fatigue and he felt slightly short of breath with nausea and radiation to left shoulder and back. Received aspirin and nitroglycerin which dropped his blood pressure momentarily to the 90s. Chest x-ray was unremarkable, EKG showed no acute changes, blood pressure rebounded. Troponins negative. He agreed to a nuclear stress test which was read as low risk stress findings. Cardiology saw him and he will follow-up as an outpatient with medical management. He will be sent home on aspirin, a statin, a beta bill and Imdur. The patient is very anxious for discharge and is now pain-free. Qualifiers: Chest pain type: unspecified Qualified Code(s): R07.9 - Chest pain, unspecified (2) Tobacco abuse Priority: Primary Status: Chronic Comments: Smoking cessation advised (3) Abnormal stress test Priority: Primary Status: Acute Comments: Cardiology consulted and orders received Patient will be discharged on medical management for low risk stress findings (4) Peripheral vascular disease Priority: Secondary Status: Chronic Comments: stable (5) COPD (chronic obstructive pulmonary disease) Priority: Secondary Status: Chronic Comments: stable, continue home medications Qualifiers: Emphysema type: unspecified Qualified Code(s): J43.9 - Emphysema, unspecified - Discharge Medications Prescriptions: Isosorbide MONOnitrate (24 HR) [Imdur] 30 mg PO DAILY #30 tab.er.24h Metoprolol [Lopressor] 12.5 mg PO BID #30 tablet Home Medications: Amitriptyline HCl 250 mg PO HS 12/14/16 [History] Aspirin Enteric Coated [Aspirin EC] 81 mg PO QAM 12/14/16 [History] Buspirone HCl [Buspar] 15 mg PO BID 12/14/16 [History] Citalopram [CeleXA] 20 mg PO HS 12/14/16 [History] Cyclobenzaprine [Flexeril] 10 mg PO HS 12/14/16 [History] HYDROcodone/Acet 10/325 mg [[place] 10-325 mg] 1 tab PO Q6HR PRN 12/14/16 [History ] Loratadine [Allergy Relief] 10 mg PO HS 12/14/16 [History] Montelukast [Singulair] 10 mg PO QAM 12/14/16 [History] Ranitidine HCl [Zantac] 150 mg PO BID 12/14/16 [History] Sennosides [Senna] 17.2 mg PO HS PRN 12/14/16 [History] Simvastatin [Zocor] 40 mg PO QAM 12/14/16 [History] Venlafaxine XR (24 HR) [Effexor XR] 75 mg PO QAM 12/14/16 [History] Venlafaxine XR (24 HR) [Effexor Xr] 150 mg PO HS 12/14/16 [History] Isosorbide MONOnitrate (24 HR) [Imdur] 30 mg PO DAILY #30 tab.er.24h 10/20/17 [ Rx] Metoprolol [Lopressor] 12.5 mg PO BID #30 tablet 10/20/17 [Rx] Allergies/Adverse Reactions: 3 Allergy/AdvReac Type Severity Reaction Status Date / Time ciprofloxacin [From Cipro] Allergy Itching Verified 10/19/17 15:11 Procedures/tests Complete & Pending: Procedures Performed prior 72 hours Category Date Time Status NM evette perf SPECT multi [NM] Routine Exams 10/20/17 09:01 Taken SP pharm nuclear stress Routine Y 10/20/17 09:00 Completed Date of admission: 10/19/17 20:37 Primary care physician: Ruiz Decker Consults: 10/20/17 13:32 Consult to Cardiology [CONS] Routine Comment: Consulting Provider: Cardiology Roxie Reason for Consult: abnormal stress test Time Notified: 13:33 Call Completed: Yes Discharging clinician: Elissa Peña Anticipated date of discharge: 10/20/17 - Patient Status Disposition: Home, Self-Care Functional capacity at discharge: independent ambulation Overall status at discharge: patient is back to baseline - Discharge Instructions Follow Up With: Ruiz Decker DO [Primary Care Provider] - Justen Mckinley DO [Partnered Physician] - - Diet and Activity Activity: resume usual activities as tolerated Diet: low fat, low cholesterol Interval History: Patient denied chest pain, shortness of breath, abdominal pain, nausea, vomiting , fever, chills or other complaints except for a mild headache. He agreed to his nuclear stress test. Results were obtained, discussed with cardiology. He has no questions and is anxious for discharge and will follow-up as directed Hospital course: please see assessment and plan Time spent discussing smoking cessation with patient: 3 to 10 minutes - Time Spent with Patient Total time spent providing and/or coordinating discharge services: - Constitutional Vitals: Temp Pulse Resp BP Pulse Ox 97.2 F L 77 18 137/87 93 10/20/17 12:28 10/20/17 12:28 10/20/17 12:28 10/20/17 12:28 10/20/17 12:28 General appearance: Present: cooperative, A&O X 3, pleasant, no acute distress, answers questions appropriately - Head Head exam: Present: atraumatic, normocephalic - Eye Eye exam: Present: conjuntiva pink, sclera anicteric - Neck Neck exam general surgery: Present: supple, trachea midline. Absent: lymphadenopathy - Respiratory Respiratory exam: Present: CTAB. Absent: accessory muscle use, rales, rhonchi, wheezes - Cardiovascular Cardiovascular exam: Present: RRR, +S1, +S2. Absent: diastolic murmur, gallop, rubs, systolic murmur - GI/Abdominal GI/Abdominal exam: Present: normal bowel sounds, soft, no peritoneal signs. Absent: distended, tenderness - Extremities Exam Extremities exam: Present: warm, radial pulses palpable and symmetrical. Absent : calf tenderness, cyanotic, pedal edema - Neurological Exam Neurological exam: Present: CN II-XII intact, oriented X3, no focal deficits. Absent: pronater drift, facial droop, speech deficit - Skin Skin exam: Present: dry, intact
== END 2017-10-20 16:56 | disposition home or self-care (01) ==
LOC: 3BNU 15:07 → EMEROO 15:07 → 3BNU 21:36
PROVIDERS: ADMIT Internal Medicine; ATTEND Registered Nurse

== ENCOUNTER 2019-11-10 14:15 | Observation (INO) ==
[2019-11-10] MEDS ORDERED: 0.9 % Sodium Chloride 1,000 ML IVC ONE (15:15)
[2019-11-10 15:44] LABS: Basophils # 0.1 K/mcL (0.0-0.2); Basophils % 1.2 %; Eosinophils # 0.1 K/mcL (0.0-0.6); Eosinophils % 1.4 %; Hematocrit 45.5 % (37.5-50.1); Hemoglobin 15.3 g/dL (12.9-16.9); Immature Granulocytes % 0.3 % (0-4); Lymphocytes # 2.3 K/mcL (0.6-4.6); Lymphocytes % 24.9 %; Mean Corpuscular HGB Conc 33.6 g/dL (31.6-35.5); Mean Corpuscular Hemoglobin 29.9 pg (28.0-33.3); Mean Corpuscular Volume 88.9 fL (83.0-100.0); Mean Platelet Volume 9.8 fL (9.4-12.4); Monocytes # 0.7 K/mcL (0.0-1.3); Monocytes % 7.6 %; Neutrophils # 6.1 K/mcL (1.6-8.9); Platelet Count 239 K/mcL (140-400); Red Blood Count 5.12 M/mcL (4.19-5.50); Red Cell Distribution Width 13.9 % (11.5-14.5); Segmented Neutrophils % 64.6 %; White Blood Count 9.4 K/mcL (4.3-11.1)
[2019-11-10 15:50] LABS: Prothrombin Time 11.6 Seconds (9.4-12.1)
[2019-11-10 15:52] LABS: Activated Partial Thrombo Time 34.5 Seconds (26.0-36.0)
[2019-11-10 16:04] LABS: Alanine Aminotransferase 17 Units/L (7-52); Albumin 4.1 g/dL (3.5-5.7); Albumin/Globulin Ratio 1.4 (1.1-2.2); Alkaline Phosphatase 130 Units/L (34-104); Aspartate Amino Transferase 15 Units/L (13-39); BUN/Creatinine Ratio 16 (6-26); Bilirubin,Total 0.4 mg/dL (0.3-1.0); Blood Urea Nitrogen 16 mg/dL (8-23); Calcium 9.8 mg/dL (8.6-10.3); Carbon Dioxide 25 mEq/L (23-29); Chloride 102 mEq/L (98-107); Globulin 2.9 g/dL (2.4-3.5); Glucose 81 mg/dL (70-105); Osmolality,Calculated 280 (280-300); Potassium 4.1 mEq/L (3.5-5.1); Sodium 135 mEq/L (136-145); eGFR For African Americans > 60 (> 60); eGFR For Non-African Americans > 60 (> 60)
[2019-11-10 16:14] LABS: Bilirubin,Urine Negative (Negative); Blood,Urine Negative (Negative); Color,Urine Yellow (Yellow); Glucose,Urine (UA) Normal (Normal); Ketones,Urine Negative (Negative); Leukocyte Esterase,Urine Negative (Negative); Nitrite,Urine Negative (Negative); Protein,Urine Negative (Neg-Trace); Specific Gravity,Urine 1.023 (1.010-1.025); Urobilinogen,Urine Normal (Normal)
[2019-11-10 16:17] LABS: Clarity,Urine Hazy (Clear)
[2019-11-10] MEDS ORDERED: Naloxone 0.4 MG/ML INJ IVP PRN (17:18)
[2019-11-10] MEDS ORDERED: Ondansetron 4 MG/2 ML VIAL IVP PRN (17:18)
[2019-11-10] MEDS ORDERED: Aspirin 325 MG TABLET PO ONE (17:21)
[2019-11-10] MEDS: *HR* Heparin 5,000 UNIT/ML VIAL SQ SCH (19:19)
[2019-11-10] MEDS: Ipratropium/Albuterol Neb 3 ML IH SCH (22:26)
[2019-11-11] MEDS: Ipratropium/Albuterol Neb 3 ML IH SCH ×2 (03:39→10:41)
[2019-11-11 05:17] LABS: Basophils # 0.1 K/mcL (0.0-0.2); Basophils % 1.5 %; Eosinophils # 0.2 K/mcL (0.0-0.6); Eosinophils % 2.6 %; Hematocrit 43.4 % (37.5-50.1); Hemoglobin 13.8 g/dL (12.9-16.9); Immature Granulocytes % 0.2 % (0-4); Mean Corpuscular HGB Conc 31.8 g/dL (31.6-35.5); Mean Corpuscular Hemoglobin 29.4 pg (28.0-33.3); Mean Corpuscular Volume 92.5 fL (83.0-100.0); Mean Platelet Volume 10.1 fL (9.4-12.4); Monocytes # 0.9 K/mcL (0.0-1.3); Monocytes % 10.3 %; Neutrophils # 4.3 K/mcL (1.6-8.9); Platelet Count 210 K/mcL (140-400); Red Blood Count 4.69 M/mcL (4.19-5.50); Segmented Neutrophils % 50.4 %; White Blood Count 8.6 K/mcL (4.3-11.1)
[2019-11-11 05:46] LABS: BUN/Creatinine Ratio 14 (6-26); Blood Urea Nitrogen 18 mg/dL (8-23); Calcium 9.3 mg/dL (8.6-10.3); Carbon Dioxide 27 mEq/L (23-29); Chloride 104 mEq/L (98-107); Chol/HDL Ratio 3.8 (0-4.9); Cholesterol 169 mg/dL (< 200); Glucose 122 mg/dL (70-105); HDL Cholesterol 45 mg/dL (40-59); LDL Cholesterol,Calculated 88 mg/dL (0-99); Magnesium 2.2 mg/dL (1.6-2.6); Osmolality,Calculated 291 (280-300); Potassium 3.9 mEq/L (3.5-5.1); Sodium 139 mEq/L (136-145); Triglycerides 181 mg/dL (< 150); eGFR For African Americans > 60 (> 60); eGFR For Non-African Americans 56 (> 60)
[2019-11-11] MEDS: *HR* Heparin 5,000 UNIT/ML VIAL SQ SCH (05:54)
[2019-11-11 06:30] LABS: Estimated Average Glucose 143 mg/dl
[2019-11-11 07:06] VITALS: BP 177/71
[2019-11-11] MEDS ORDERED: 0.9 % Sodium Chloride 1,000 ML IVC SCH (07:45)
== END 2019-11-11 10:34 | disposition left against medical advice (07) ==
LOC: 3BNU 14:15 → EMEROOARM 14:15 → SUATTDRO 16:54 → 3BNU 18:09
PROVIDERS: ADMIT Pharmacist; ATTEND Internal Medicine

== ENCOUNTER 2021-01-05 17:09 | Observation (INO) ==
[2021-01-05] MEDS ORDERED: Acetaminophen 325 MG TABLET PO PRN (21:24)
[2021-01-05] MEDS ORDERED: Naloxone 0.4 MG/ML INJ IVP PRN (21:24)
[2021-01-05] MEDS ORDERED: Ondansetron 4 MG/2 ML VIAL IVP PRN (21:27)
[2021-01-05] MEDS ORDERED: 0.9 % Sodium Chloride 1,000 ML IVC SCH (21:30)
[2021-01-05 21:58] LABS: Basophils # 0.1 K/mcL (0.0-0.2); Basophils % 0.5 %; Eosinophils # 0.2 K/mcL (0.0-0.6); Eosinophils % 1.1 %; Hematocrit 41.6 % (37.5-50.1); Hemoglobin 13.6 g/dL (12.9-16.9); Immature Granulocytes % 0.3 % (0-4); Lymphocytes # 2.5 K/mcL (0.6-4.6); Mean Corpuscular HGB Conc 32.7 g/dL (31.6-35.5); Mean Corpuscular Volume 91.8 fL (83.0-100.0); Mean Platelet Volume 10.1 fL (9.4-12.4); Monocytes # 1.8 K/mcL (0.0-1.3); Monocytes % 12.1 %; Neutrophils # 10.1 K/mcL (1.6-8.9); Platelet Count 223 K/mcL (140-400); Red Blood Count 4.53 M/mcL (4.19-5.50); Red Cell Distribution Width 13.2 % (11.5-14.5); White Blood Count 14.7 K/mcL (4.3-11.1)
[2021-01-05 22:17] LABS: BUN/Creatinine Ratio 19 (6-26); Blood Urea Nitrogen 17 mg/dL (8-23); Calcium 8.9 mg/dL (8.6-10.3); Carbon Dioxide 19 mEq/L (23-29); Chloride 107 mEq/L (98-107); Glucose 110 mg/dL (70-105); Osmolality,Calculated 290 (280-300); Potassium 3.8 mEq/L (3.5-5.1); Sodium 139 mEq/L (136-145); eGFR For African Americans > 60 (> 60); eGFR For Non-African Americans > 60 (> 60)
[2021-01-05 23:07] LABS: Bilirubin,Urine Negative (Negative); Blood,Urine Moderate (Negative); Clarity,Urine Clear (Clear); Color,Urine Yellow (Yellow); Glucose,Urine (UA) Normal (Normal); Ketones,Urine 10 mg/dL (Negative); Leukocyte Esterase,Urine Negative (Negative); Nitrite,Urine Negative (Negative); PH,Urine 5.5 pH Units (5.0-8.0); Protein,Urine Trace mg/dL (Neg-Trace); RBC,Urine 15-30 per hpf (0-3); Specific Gravity,Urine 1.021 (1.010-1.025); Urobilinogen,Urine Normal (Normal); WBC,Urine 0-3 per hpf (0-3)
[2021-01-06 00:08] LABS: Creatine Kinase 3213 Units/L (30-223); Magnesium 1.9 mg/dL (1.6-2.6); Troponin I < 0.03 ng/mL (< 0.04)
[2021-01-06] MEDS: 0.9 % Sodium Chloride 1,000 ML IVC SCH ×2 (02:44→04:19)
[2021-01-06] MEDS: *HR* Heparin 5,000 UNIT/ML VIAL SQ SCH ×2 (05:23→13:42)
[2021-01-06] MEDS ORDERED: 0.9 % Sodium Chloride 1,000 ML IVC SCH (13:30)
[2021-01-06] MEDS ORDERED: *HR* HYDROcodone/Acet 10/325 mg TABLET PO PRN (14:53)
[2021-01-06] MEDS ORDERED: Albuterol 2.5 MG/3 ML NEBULIZER IH PRN (14:53)
[2021-01-06] MEDS ORDERED: Baclofen 10 MG TABLET PO PRN (15:00)
[2021-01-06 17:23] VITALS: BP 164/72
[2021-01-06] MEDS ORDERED: Famotidine 20 MG TABLET PO SCH (21:00)
[2021-01-06] MEDS ORDERED: Venlafaxine XR (24 HR) 150 MG CAP.ER.24H PO SCH (21:00)
[2021-01-07] MEDS ORDERED: Aspirin Enteric Coated 81 MG Tablet PO SCH (09:00)
[2021-01-07] MEDS ORDERED: Isosorbide MONOnitrate (24 HR) 30 MG TAB.ER.24H PO SCH (09:00)
== END 2021-01-06 19:27 | disposition home health service (06) ==
LOC: 3ANU → SUATTDRO 19:51
PROVIDERS: ADMIT General Practice; ATTEND Student in an Organized Health Care Education/Training Program